=== PATIENT | male | born 1980 | race Caucasian/White ===

== ENCOUNTER 2019-10-15 18:51 | Emergency (ER) | payer BC ==
[2019-10-15] MEDS ORDERED: Albuterol 8 GM Inhaler INH ONE (19:00)
[2019-10-15] MEDS: LORazepam 1 MG Tab PO ONE (19:33)
[2019-10-15] MEDS: LORazepam 1 MG Tab ONE (19:40)
[2019-10-15] MEDS: Albuterol 8 GM Inhaler INH ONE (20:25)
--- NOTE | 2019-10-15 20:26 | EDM.PDOC ---
ED HPI GENERAL MEDICAL PROBLEM - General Chief Complaint: Respiratory Problem Stated Complaint: SOB Time Seen by Provider: 10/15/19 19:15 Source of Information: Reports: Patient History Limitations: Reports: No Limitations - History of Present Illness INITIAL COMMENTS - FREE TEXT/NARRATIVE: Godfrey was well until about 1630 this afternoon. He was sitting ni a chair ice fishing for awhile, got up and bent over temporarily to tie his shoes, and felt like he just couldn't catch his breath. This came on all of a sudden, and had absolutely no associated sx's until just before he checked in. It was at its worst intensity right away, then gradually improved. He figured he would drive in and get checked out, but his sx's improved to the point that he debated turing around and going back out on the ice by the time he arrived to town. Then he noticed a sensation that his hands were "shaky", although he does not clearly describe a visible tremor. He certainly has not had any breathing issues ever in his life. He has no chest pain, pleuritic or otherwise. He has not been sick. No fever, h/a, cough, palpitations, nausea, diaphoresis, recent trauma, immobilization, or other concerns. No personal or family history of thromboembolism. Denies anxiety or h/o panic disorder. Quit smoking 2 months ago, but admits to "drinking like a fish". No drug use. Denies work or life stressors. No other relevant family history, he is aware only that of prostate cancer. He is a bit tired, but has not really slept well the last couple of nights on the ice. He would like an inhaler to go, and no others in his libertarian have had any breathing issues, or known inhalational exposure. He feels his elevated bp is typical for him as he takes losartan "when he remembers". - Related Data Allergies Allergy/AdvReac Type Severity Reaction Status Date / Time morphine Allergy Rash Verified 10/15/19 19:03 Home Meds: Home Meds Losartan [Cozaar] 25 mg PO DAILY 10/15/19 [History] Past Medical History Cardiovascular History: Reports: Hypertension, SOB on Exertion Gastrointestinal History: Reports: None Musculoskeletal History: Reports: Fracture, Other (See Below) Other Musculoskeletal History: Broken right elbow Neurological History: Reports: None Endocrine/Metabolic History: Reports: None - Infectious Disease History Infectious Disease History: Reports: Chicken Pox - Past Surgical History GI Surgical History: Reports: None Social & Family History - Tobacco Use Smoking Status *Q: Former Smoker Years of Tobacco use: 24 Packs/Tins Daily: 2 Used Tobacco, but Quit: No Second Hand Smoke Exposure: No - Caffeine Use Caffeine Use: Reports: Coffee - Recreational Drug Use Recreational Drug Use: No ED ROS GENERAL - Review of Systems Review Of Systems: Comprehensive ROS is negative, except as noted in HPI. ED EXAM, GENERAL - Physical Exam Exam: See Below Exam Limited By: No Limitations General Appearance: Alert, WD/WN, No Apparent Distress Eye Exam: Bilateral Eye: EOMI, PERRL Ears: Normal External Exam, Hearing Grossly Normal Nose: Normal Inspection Throat/Mouth: Normal Inspection, Normal Voice, No Airway Compromise Head: Atraumatic, Normocephalic Neck: Normal Inspection, Supple, Non-Tender, Full Range of Motion Respiratory/Chest: No Respiratory Distress, Lungs Clear, Normal Breath Sounds, No Accessory Muscle Use, Chest Non-Tender Cardiovascular: Regular Rate, Rhythm, No Murmur, No Rub GI/Abdominal: Normal Bowel Sounds, Soft, Non-Tender Extremities: Normal Inspection, Normal Range of Motion, Non-Tender, No Pedal Edema Neurological: Alert, Oriented, Normal Cognition, Normal Gait, No Motor/Sensory Deficits Psychiatric: Normal Affect Skin Exam: Warm, Dry, Intact, No Rash Lymphatic: No Adenopathy Course - Vital Signs Text/Narrative:: Godfrey O2 sat on RA was 100% and he appeared fine yawned a bit throughout the encounter he asked that we expedite his discharge reviewed his differential in detail and discussed management options unfortunately, I do not have a clear etiology of his sx's, but I think PE can reliably be ruled out based on low risk per Well's and PERC rule; similarly, an ischemic CV cause seems unlikely a non-thoracic cause does not really fit his sx's explained his w/u is certainly reassuring, and we decided together a chest CT seems like overkill and he certainly does not want to be here another hour potentially he promises to return if his sx's come back or he notices anything else that seems off with his body Last Recorded V/S: Last Vital Signs Temp 98.7 F 10/15/19 18:51 Pulse 86 10/15/19 18:51 Resp 20 10/15/19 18:51 BP 160/103 H 10/15/19 18:51 Pulse Ox 100 10/15/19 18:51 - Orders/Labs/Meds Orders: Active Orders 24 hr Category Date Time Status Cardiac Monitoring [RC] .As Directed Care 10/15/19 19:16 Active EKG Documentation Completion [RC] ASDIRECTED Care 10/15/19 19:15 Active Chest 2V [CR] Stat Exams 10/15/19 19:14 Taken COMPREHENSIVE METABOLIC PN,CMP [CHEM] AM Lab 10/16/19 05:11 Ordered COMPREHENSIVE METABOLIC PN,CMP [CHEM] AM Lab 10/17/19 05:11 Ordered Labs: Laboratory Tests 10/15/19 10/15/19 10/15/19 Range/Units 19:14 19:14 19:14 WBC 9.2 (4.0-11.0) K/uL RBC 5.02 (4.50-6.50) M/uL Hgb 15.9 (13.0-18.0) g/dL Hct 44.8 (40.0-54.0) % MCV 89 (76-96) fL MCH 31.7 (27.0-32.0) pg MCHC 35.5 H (31.0-35.0) g/dL RDW 12.2 (11.0-16.0) % Plt Count 292 (150-400) K/uL MPV 9.1 (6.0-10.0) fL Neut % (Auto) 70.3 H (45.0-70.0) % Lymph % (Auto) 17.7 L (20.0-40.0) % [place] % (Auto) 10.0 (3.0-10.0) % Eos % (Auto) 1.3 (1.0-5.0) % Baso % (Auto) 0.7 H (0.0-0.5) % Neut # (Auto) 6.48 (2.00-7.50) K/uL Lymph # (Auto) 1.63 (1.50-4.00) K/uL [place] # (Auto) 0.92 H (0.20-0.80) K/uL Eos # (Auto) 0.12 (0.04-0.40) K/uL Baso # (Auto) 0.06 (0.02-0.10) K/uL D-Dimer, Quantitative (0-400) ng/mL Troponin I < 0.017 (0.000-0.060) ng/mL B-Natriuretic Peptide 10 (0-125) pg/mL 10/15/19 Range/Units 19:15 WBC (4.0-11.0) K/uL RBC (4.50-6.50) M/uL Hgb (13.0-18.0) g/dL Hct (40.0-54.0) % MCV (76-96) fL MCH (27.0-32.0) pg MCHC (31.0-35.0) g/dL RDW (11.0-16.0) % Plt Count (150-400) K/uL MPV (6.0-10.0) fL Neut % (Auto) (45.0-70.0) % Lymph % (Auto) (20.0-40.0) % [place] % (Auto) (3.0-10.0) % Eos % (Auto) (1.0-5.0) % Baso % (Auto) (0.0-0.5) % Neut # (Auto) (2.00-7.50) K/uL Lymph # (Auto) (1.50-4.00) K/uL [place] # (Auto) (0.20-0.80) K/uL Eos # (Auto) (0.04-0.40) K/uL Baso # (Auto) (0.02-0.10) K/uL D-Dimer, Quantitative < 100 (0-400) ng/mL Troponin I (0.000-0.060) ng/mL B-Natriuretic Peptide (0-125) pg/mL Meds: Medications Discontinued Medications Generic Name Dose Route Start Last Admin Trade Name Freq PRN Reason Stop Dose Admin Albuterol Confirm 10/15/19 20:24 Ventolin Hfa Administered 10/15/19 20:25 Dose 8 gm INH .STK-MED ONE Lorazepam 1 mg 10/15/19 19:20 10/15/19 19:33 Ativan PO 10/15/19 19:21 1 mg ONETIME ONE Administration Lorazepam Confirm 10/15/19 19:41 Ativan Administered 10/15/19 19:42 Dose 1 mg .ROUTE .STK-MED ONE Departure - Departure Time of Disposition: 08:15 Disposition: Home, Self-Care 01 Clinical Impression: SOB (shortness of breath) - Discharge Information Instructions: Shortness of Breath, Adult, [id number] Referrals: PCP,None [Primary Care Provider] - Forms: ED Department Discharge Additional Instructions: I am proud of you for quitting smoking. Please come back and/or see your doctor if things aren't right. You may use the inhaler- 2 puffs every 4 hours as needed. I would guess that you had some temporary bronchoconstriction, for lack of a better cause. Take care and good luck fishing. Sincerely, Vaughn Stover MD Sepsis Event Note - Evaluation Sepsis Screening Result: No Definite Risk - Focused Exam Vital Signs: Vital Signs Temp Pulse Resp BP Pulse Ox 10/15/19 18:51 98.7 F 86 20 160/103 H 100 Date Exam was Performed: 10/15/19 Time Exam was Performed: 21:18 - My Orders Last 24 Hours: My Active Orders 10/15/19 19:14 Chest 2V [CR] Stat 10/15/19 19:15 EKG Documentation Completion [RC] ASDIRECTED 10/15/19 19:16 Cardiac Monitoring [RC] .As Directed 10/16/19 05:11 COMPREHENSIVE METABOLIC PN,CMP [CHEM] AM 10/17/19 05:11 COMPREHENSIVE METABOLIC PN,CMP [CHEM] AM - Assessment/Plan Last 24 Hours: My Active Orders 10/15/19 19:14 Chest 2V [CR] Stat 10/15/19 19:15 EKG Documentation Completion [RC] ASDIRECTED 10/15/19 19:16 Cardiac Monitoring [RC] .As Directed 10/16/19 05:11 COMPREHENSIVE METABOLIC PN,CMP [CHEM] AM 10/17/19 05:11 COMPREHENSIVE METABOLIC PN,CMP [CHEM] AM
--- NOTE | 2019-10-16 17:19 | CR ---
Date of Service: 10/15/19 Clinical Data: SOB PA AND LATERAL CHEST: No priors. The heart size is normal. the lungs are clear. No pneumothorax. No pleural effusions. No evidence of acute intrathoracic disease. [id number] MTDD
== END 2019-10-15 20:36 | disposition home or self-care (01) ==
LOC: LB.ED 18:51
DX: R06.02 Shortness of breath (principal); I10 Essential (primary) hypertension; Z88.5 Allergy status to narcotic agent; Z79.899 Other long term (current) drug therapy; Z87.891 Personal history of nicotine dependence
CPT/HCPCS: 36415; 71046; 83880; 84484; 85025; 85379; 93005; 99285-25; A9270-GY